=== PATIENT | female | born 1985 | race Two or more races ===

== ENCOUNTER 2020-10-21 19:50 | Emergency (ER) | payer SELFPAY ==
--- NOTE | 2020-10-21 20:20 | EDM.PDOC ---
ED HPI GENERAL MEDICAL PROBLEM - General Chief Complaint: Lower Extremity Injury/Pain Stated Complaint: LEFT KNEE INJURY Time Seen by Provider: 10/21/20 20:11 Source of Information: Reports: Patient History Limitations: Reports: No Limitations - History of Present Illness INITIAL COMMENTS - FREE TEXT/NARRATIVE: Pt was at work [place] noted a sharp pain in her left knee. She denies any twisting, bending or locking of the knee prior to the onset of the pain. She has never injured this knee before. She has had surgery on her right knee in the past. She denies any numbness, tingling or weakness in the lower leg or foot. She is able to walk on the left leg, but notes a lot of pain with bending the knee. Onset: Today, Sudden Duration: Minutes: Left Knee Pain Score (Numeric/FACES): 7 - Related Data Allergies Allergy/AdvReac Type Severity Reaction Status Date / Time No Known Allergies Allergy Verified 10/21/20 20:06 Home Meds: Home Meds Propanolol 20 mg PO BID 10/21/20 [History] Review of Systems - Review of Systems Review Of Systems: Comprehensive ROS is negative, except as noted in HPI. ED EXAM, GENERAL - Physical Exam Exam: See Below Exam Limited By: No Limitations General Appearance: Alert, WD/WN, No Apparent Distress Ears: Normal External Exam Head: Atraumatic, Normocephalic Neck: Normal Inspection Respiratory/Chest: No Respiratory Distress, No Accessory Muscle Use Cardiovascular: Normal Peripheral Pulses, No Edema GI/Abdominal: Soft, No Distention Back Exam: Full Range of Motion Extremities: Joint Swelling (left knee), Limited Range of Motion (in left knee due to pain and swelling), Other (joint line tenderness to bilateral left knee lateral>medial. negative anterior and posterior drawer. ) Neurological: Alert, Oriented, Normal Cognition Psychiatric: Normal Affect, Normal Mood Skin Exam: Warm, Dry, Intact, Normal Color, No Rash Course - Vital Signs Last Recorded V/S: Last Vital Signs Temp 97.9 F 10/21/20 20:07 Pulse 93 10/21/20 20:07 Resp 16 10/21/20 20:07 BP 138/86 10/21/20 20:07 Pulse Ox 99 10/21/20 20:07 Departure - Departure Time of Disposition: 20:58 Disposition: Home, Self-Care 01 Clinical Impression: Left knee injury Qualifiers: Encounter type: initial encounter Qualified Code(s): S89.92XA - Unspecified i njury of left lower leg, initial encounter - Discharge Information Instructions: Knee Sprain, Adult, [id number] Forms: ED Department Discharge Additional Instructions: Follow up with PCP within the next week If pain persists/worsens, may need further imaging with MRI Francisco J wrap for comfort OTC medications and ice as needed for pain Sepsis Event Note (ED) - Evaluation Sepsis Screening Result: No Definite Risk - Focused Exam Vital Signs: Vital Signs Temp Pulse Resp BP Pulse Ox 10/21/20 20:07 97.9 F 93 16 138/86 99
--- NOTE | 2020-10-21 20:49 | CR ---
PROCEDURE INFORMATION: Exam: XR Left Knee Exam date and time: 10/21/2020 8:29 PM Age: 35 years old Clinical indication: Other: Twisted; Additional info: Left knee injury TECHNIQUE: Imaging protocol: XR Left knee. Views: 3 views. COMPARISON: No relevant prior studies available. FINDINGS: Bones/joints: The alignment of the joints is anatomic and the joint spaces are maintained. There is no evidence of acute fracture. There is no evidence of a joint effusion. Soft tissues: Unremarkable. IMPRESSION: Normal appearing knee.
== END 2020-10-21 21:04 | disposition home or self-care (01) ==
LOC: DL.ED 19:50
DX: S89.92XA Unspecified injury of left lower leg, initial encounter (principal); X58.XXXA Exposure to other specified factors, initial encounter; Y99.0 Civilian activity done for income or pay
CPT/HCPCS: 73562-LT; 99283; 99283-25